=== PATIENT | female | born 1995 | race Caucasian/White ===

== ENCOUNTER 2024-02-21 17:15 | Emergency (ER) | payer BC, SELFPAY ==
[2024-02-21 17:24] VITALS: BP 118/78; PULSE 77; RESP 20; TEMP 36.6; O2SAT 100
--- NOTE | 2024-02-21 17:32 | ED.FEMALEGU ---
HPI - Female Genitourinary General Chief complaint: Urogenital-Female Stated complaint: Urinary Problem Time Seen by Provider: 02/21/24 17:32 Source: patient, RN notes reviewed and old records reviewed Mode of arrival: ambulatory Limitations: no limitations History of Present Illness HPI Narrative: 28 year old female presents to [facility] care with complaints of urinary tract infection symptoms which started this morning which includes urinary frequency, uwhen she voids. urgency and some pain at urethra when voiding and has noticed some blood in urine. Patient reports no fevers, chills or any nausea or vomiting. Patient denies any vaginal discharge or itching, denies any concern for STD exposure. Patient reports no Suprapubic abdominal tenderness or any CVA tenderness. MD elicited complaint: UTI (symptoms) Onset (ago): day(s) (1) Severity scale (1-10): 3 Vaginal discharge: none Vaginal bleeding: none Sexual activity: Yes Patient : No Related Data Home Medications Medication Instructions Recorded Confirmed escitalopram oxalate 10 mg tablet mg 02/21/24 norgestimate-ethinyl estradiol tablet 02/21/24 0.18 mg/0.215mg/0.25mg-35 mcg(28)tablet (Tri-Sprintec (28)) pravastatin 20 mg tablet mg 02/21/24 Allergies Allergy/AdvReac Type Severity Reaction Status Date / Time No Known Allergies Allergy Verified 02/21/24 17:28 Review of Systems Review of Systems: CONSTITUTIONAL: Denies fever, chills, or sweats. CARDIOVASCULAR: Denies chest pain, palpitations, or edema. RESPIRATORY: Denies cough or dyspnea. GASTROINTESTINAL: Denies abdominal pain, nausea, vomiting, or diarrhea. GENITOURINARY: Reports dysuria, frequency, urgency. Denies flank pain positive for hematuria. SKIN: Denies rash or itching. MUSCULOSKELETAL: Denies back pain or myalgia. Denies CVA tenderness NEUROLOGIC: Denies headache All systems reviewed & are unremarkable except as noted in HPI and below [facility] Past Medical History Medical History (Updated 02/23/24 @ 12:07 by Brittany Springer NP) Anxiety Ear infection Elevated cholesterol Surgical History Surgical History (Updated 02/23/24 @ 12:01 by Brittany Springer NP) [place] teeth extracted Social History Social History (Updated 02/23/24 @ 12:03 by Brittany Springer NP) Smoking status: Never smoker Alcohol intake: current Alcohol use details: rare social Substance use type: does not use Gender identity (if verbalized by the patient): Female Comments At time of signature, agree with nursing past medical, surgical, social and family history. There is no relevant family history pertinent to the presenting complaint Exam Narrative: GENERAL: Well-appearing, well-nourished, and in no acute distress. HEAD: Normocephalic, atraumatic. NECK: Supple. CHEST: Clear to auscultation. No respiratory distress.SAO2 100% on room air HEART: Regular rate and rhythm. No murmur heard. Normal peripheral pulses. ABDOMEN: Soft, nontender, nondistended, normal active bowel sounds. No CVA tenderness,urinary frequency, urgency blood in urine some discomfort when voiding. EXTREMITIES: Normal range of motion. No edema. SKIN: Warm, dry, no rash. NEURO: No focal deficits. Alert and oriented x3. Course Course Emergency Course: Patient is aware of diagnosis, understands and agrees to treatment plan.? Anticipatory guidance given.? Patient agrees to follow-up as directed and is aware of reasons to seek care at the emergency department. Portions of this record may have been created with voice recognition software Level of Care: Express Care Visit Vital Signs Vital signs: Vital Signs Temperature 36.6 C 02/21/24 17:24 Pulse Rate 77 02/21/24 17:24 Respiratory Rate 20 02/21/24 17:24 Blood Pressure 118/78 02/21/24 17:24 Pulse Oximetry 100 02/21/24 17:24 Oxygen Delivery Room Air 02/21/24 17:24 Temperature 36.6 C 02/21/24 17:24 Pulse Rate 77 02/21/24 17:24 R
[2024-02-21 17:42] LABS: EDUAAPPEAR Clear; EDUABILI Negative; EDUABLOOD 3+; EDUACOLOR1 Light/Pale; EDUAGLUCOSE Negative; EDUAKETONE Negative; EDUALEUKO Negative; EDUANITRATE Negative; EDUAPH 5.5; EDUAPROTEIN Negative; EDUAUROBILI 0.2
== END 2024-02-21 18:22 | disposition home or self-care (01) ==
PROVIDERS: Emergency Provider Registered Nurse; PCP Internal Medicine
DX: N39.0 Urinary tract infection, site not specified (principal); E78.00 Pure hypercholesterolemia, unspecified
CPT/HCPCS: 81003; 87086; 87088; 99203; G0463